=== PATIENT | male | born 1935 | race Caucasian/White ===

== ENCOUNTER 2016-08-29 13:02 | Outpatient (CLI) | payer OTHER | END 2016-08-29 13:04 | LOC: POD 13:02 | PROVIDERS: ATTEND Podiatrist | DX: M20.42 Other hammer toe(s) (acquired), left foot (principal); B35.1 Tinea unguium; M79.674 Pain in right toe(s); M79.675 Pain in left toe(s) | CPT/HCPCS: 11721; G0463 ==

== ENCOUNTER 2016-08-31 07:40 | Outpatient (CLI) | payer OTHER ==
--- NOTE | 2016-08-31 10:28 | Diagnostic Imaging Report ---
[facility] [id number] [facility].[address] [id number] Report Submission Date: Aug 31, 2016 8:16:09 AM CDT Patient Study Name: ALLIE SHAH Date: Aug 31, 2016 7:49:52 AM CDT Modality Type: CR Gender: M Description: LOWER EXTREMITY : 33 Institution: [facility] Physician RUPINDER TURPIN Left foot -three views CLINICAL HISTORY: Hammertoes. FINDINGS: Examination left foot in plantar, lateral and oblique views demonstrates extension deformities at the metatarsophalangeal joints with flexion of the proximal interphalangeal joints. Calcaneal spur is seen at site of insertion of plantar aponeurosis. There is no evident fracture and no lytic or blastic lesion. 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 Degenerative changes. Electronically signed on Aug 31, 2016 8:16:09 AM CDT by: Davey CORDOBA
== END 2016-08-31 07:42 ==
LOC: RAD 07:40
PROVIDERS: ATTEND Podiatrist
DX: M20.42 Other hammer toe(s) (acquired), left foot (principal); B35.1 Tinea unguium; M79.674 Pain in right toe(s); M79.675 Pain in left toe(s)
CPT/HCPCS: 73630

== ENCOUNTER 2016-09-04 16:22 | Outpatient (CLI) | payer OTHER ==
[2016-09-04 16:44] LABS: BASOPHILS % 0.1 (0.0-1.5); EOSINOPHILS % 3.7 % (0.0-6.8); MEAN CORPUSCULAR HEMOGLOBIN 31.7 pg (28.0-34.0); MONOCYTES % 5.7 % (0.0-11.0); NEUTROPHILS # 4.7 # k/uL (1.4-7.7)
== END 2016-09-04 16:23 ==
LOC: RT 16:22
PROVIDERS: ATTEND Family Medicine
DX: Z01.818 Encounter for other preprocedural examination (principal)
CPT/HCPCS: 36415; 85025

== ENCOUNTER 2016-10-18 10:36 | Outpatient (CLI) | payer OTHER | END 2016-10-18 10:37 | LOC: LAB 10:36 | PROVIDERS: ATTEND Physician Assistant | DX: L53.9 Erythematous condition, unspecified (principal); M25.476 Effusion, unspecified foot | CPT/HCPCS: 36415; 84550 ==

== ENCOUNTER 2019-01-29 11:50 | Outpatient (CLI) | payer OTHER ==
[2019-01-29 12:07] LABS: BASOPHILS % 0.3 % (0.0-1.5); NEUTROPHILS # 3.7 # k/uL (1.4-7.7)
[2019-01-29 12:31] LABS: eGFR (Non-African) > 60
[2019-01-29 12:32] LABS: HDL 49 mg/dL (>40)
--- NOTE | 2019-01-29 17:17 | Diagnostic Imaging Report ---
GABE MARTINEZ [facility] [id number] [facility].[address] [id number] Report Submission Date: Jan 29, 2019 12:21:25 PM CDT Patient Study Name: ALLIE SHAH Date: Jan 29, 2019 11:55:37 AM CDT Modality Type: DX Gender: M Description: L SPINE 2 OR 3 VIEWS : 33 Institution: [facility] Physician: GABE MARTINEZ Lumbar spine 3 views Indication: Low back pain Findings: 3 views of the lumbar spine without prior shows bone demineralization. Mild endplate degenerative changes are present. There is intervertebral disc space narrowing L3-4 and L1-2. There is no acute fracture or subluxation. Vascular calcifications of the abdominal aorta are present. Impression: Bony demineralization and degenerative changes. Electronically signed on Jan 29, 2019 12:21:25 PM CDT by: Sridhar CORDOBA
== END 2019-01-29 11:53 ==
LOC: LAB 11:50
PROVIDERS: ATTEND Family Medicine
DX: I10 Essential (primary) hypertension (principal); E78.00 Pure hypercholesterolemia, unspecified; M54.41 Lumbago with sciatica, right side
CPT/HCPCS: 36415; 72100; 80053; 80061; 85025